=== PATIENT | male | born 1960 | race Caucasian/White ===

== ENCOUNTER 2017-04-07 07:10 | Day surgery (SDC) | payer OTHER ==
[~2017-04-07] VITALS: Ht 177.8 cm; Wt 99.8 kg
[~2017-04-07 07:10] MED LIST: LEVO-T125 MCG PO
--- NOTE | 2017-04-07 08:39 | NUR ---
MET WITH PT'S FAMILY-FELT COMFORTABLE WITH CARE. GAVE DIRECTIONS FOR BLDG. EXPRESSED GRATITUDE. WILL FOLLOW NEEDED
--- NOTE | 2017-04-07 09:11 | NUR ---
04/07/17 0911 Danial Moyer SAT 99, O2 DECREASED TO 1L VIA NC.
--- NOTE | 2017-04-12 01:42 | OR ---
[facility] [address] [place], [place] [address] Signed PREOPERATIVE DIAGNOSIS: Dysphagia with known hiatal hernia and Schatzki's ring and clinical reflux symptoms. POSTOP DIAGNOSIS: Hiatal hernia with minimal Schatzki's ring but ulcerative esophagitis. PROCEDURE: Esophagogastroduodenoscopy with biopsy. SURGEON: Theodora. ANESTHESIA: Intravenous sedation, fentanyl 100 mcg, Versed 5 mg. INDICATION: This 56-year-old, white male, who is the patient of Dr. Vera. He has occasional dysphagia and known reflux symptoms. He does not currently take any anti-reflux medications. He occasionally takes Pepto-Bismol. His dysphagia is significant and an upper GI was performed under the direction of Dr. Vera which showed hiatal hernia and a Schatzki's ring. Consideration has been made for operative management of his problem. He is admitted at this time to undergo upper endoscopy to better characterize his Schatzki's ring and level of esophagitis and hiatal hernia and to assess for other concurrent problems of the gastrointestinal tract of the stomach and duodenum. The risks of bleeding, infection, perforation related upper endoscopy reviewed with him. He understands and wished to proceed. FINDINGS: Significant ulcerative esophagitis was noted. A poor flap valve consists with hiatal hernia was noted as well. The Schatzki ring was identified, but not particularly dense or narrow. Stomach had mild inflammation, but no ulceration. The duodenum appeared normal. CLOTEST was negative. 15 minutes post procedure. There is no clear evidence of Sanchez's epithelium. PROCEDURE: The patient brought to endoscopy suite and given topical Hurricaine spray, and placed in lateral decubitus position. He was given intravenous sedation and nystagmus. A bite block was placed. An Olympus video upper endoscope passed into the hypopharynx. He had a fair amount of secretions which required additional suctioning. The scope was advanced to the esophagus without problem. Esophagus showed impressive chronic and acute ulcerative esophagitis in the distal portion. There was no obvious neoplasm and certainly no clear evidence of Sanchez epithelium. The scope was advanced to the stomach which was insufflated with air. Nuchal fold were normal. The pylorus was normal. Scope was passed through the end of the duodenum. Biopsies of the duodenum undertaken. The scope was withdrawn and biopsies taken of the antrum for both [place] and pathologic testing. Retroflexed view confirmed hiatal hernia, which is moderately large in size. The scope was withdrawn to the distal esophagus and narrow band imaging was used to better characterize the level ulcerative Electronically Signed By: AVERY WATT MD 04/12/17 0142 PATIENT NAME: ROSSY GONZÁLES OPERATIVE REPORT DATE OF : 60 PHYSICIAN: AVERY WATT MD REPORT #: [id number] REPORT IS CONFIDENTIAL AND NOT TO BE RELEASED WITHOUT AUTHORIZATION [facility] [address] [place] [id number] Signed esophagitis. Multiple biopsies were taken from distal esophagus. The Schatzki's ring was identified, an upper GI was identified and biopsied as well, but all the specimens were passed into the same specimen container. Further withdrawal of scope showed the midesophagus to be reasonably normal appearing. Biopsies were taken there as well to assess for eosinophilic esophagitis. Further withdrawal of scope showed no other abnormalities. The vocal cords appeared reasonably normal. Scope was removed and the patient taken to recovery room in good condition. Concluding diagnosis severe ulcerative distal esophagitis and hiatal hernia. PLAN: He needs to start with Prilosec 20 mg p.o. daily at this point. Consideration would be made for operative intervention. Those patients that do well with operation often have done well with PPI medication as well. He has some resistance to this medication but on short-term it will be safe. We will see him back in 2-4 weeks and review his options at that point. MD NAS Awad/Ginal /[id number] Electronically Signed By: AVERY WATT MD 04/12/17 0142 PATIENT NAME: ROSSY GONZÁLES OPERATIVE REPORT DATE OF : 60 PHYSICIAN: AVERY WATT MD REPORT #: [id number] REPORT IS CONFIDENTIAL AND NOT TO BE RELEASED WITHOUT AUTHORIZATION
== END 2017-04-07 09:37 | disposition home or self-care (01) ==
LOC: OPS 07:10 → DS 07:10 → OPS 08:30 → DS 08:30 → OPS 09:37
PROVIDERS: Surgery
PROC: 0DB28ZX Excision of Middle Esophagus, Via Natural or Artificial Opening Endoscopic, Diagnostic (ICD-10-PCS; 2017-04-07)
PROC: 0DB68ZX Excision of Stomach, Via Natural or Artificial Opening Endoscopic, Diagnostic (ICD-10-PCS; 2017-04-07)
PROC: 0DB38ZX Excision of Lower Esophagus, Via Natural or Artificial Opening Endoscopic, Diagnostic (ICD-10-PCS; 2017-04-07)
PROC: 0DB98ZX Excision of Duodenum, Via Natural or Artificial Opening Endoscopic, Diagnostic (ICD-10-PCS; principal; 2017-04-07 08:30)
DX: K20.9 Esophagitis, unspecified (principal); K31.9 Disease of stomach and duodenum, unspecified; K29.80 Duodenitis without bleeding; K44.9 Diaphragmatic hernia without obstruction or gangrene; K22.2 Esophageal obstruction; K22.70 Barrett's esophagus without dysplasia; K21.9 Gastro-esophageal reflux disease without esophagitis; E03.9 Hypothyroidism, unspecified; I10 Essential (primary) hypertension; G47.30 Sleep apnea, unspecified; Z90.89 Acquired absence of other organs; Z98.818 Other dental procedure status
CPT/HCPCS: 99152; 99153; J2250; J3010; J7120

== ENCOUNTER 2017-08-15 11:02 | Inpatient (IN) | payer OTHER ==
[~2017-08-15] VITALS: Ht 177.8 cm; Wt 99.8 kg
--- NOTE | 2017-08-25 15:03 | OR ---
[facility] [address] [place], [place] [address] Signed DATE OF OPERATION: 08/24/2017 SURGEON: Avery Watt MD PREOPERATIVE DIAGNOSIS: Medically refractory, severe gastroesophageal reflux disease including spontaneous regurgitation, nocturnal aspiration, and hiatal hernia. POSTOPERATIVE DIAGNOSIS: Medically refractory, severe gastroesophageal reflux disease including spontaneous regurgitation, nocturnal aspiration, and hiatal hernia. PROCEDURE: 1. Hill repair (reconstruction of the gastroesophageal junction with posterior gastropexy). 2. Intraoperative manometric. 3. Placement of On-Q pain pump catheter. SURGEON: Avery Watt MD ANESTHESIA: General endotracheal (Anika Luna CRNA). INDICATION: This 57-year-old white man is a patient of Dr. Zack Vera and he has had rather significant, progressive, and longstanding reflux disease. He has been taking PPI medication, but he still bothered by his reflux symptoms including an epigastric and substernal burning pain. He has no associated dysphagia. He has nocturnal symptoms including aspiration type symptoms and is able to have spontaneous regurgitation and bending over with full stomach. He desperately wishes a surgical solution to his problem. He understands the various operations, as I have explained to him in attempts at repairing his hiatal hernia and reflux problem including both laparoscopic and open techniques. He knows I favor an open Hill Repair as it is durable, safe, and effective in my hands. He has undergone a video esophagram, which showed normal motility. He understands the risks of bleeding, infection, dysphagia either short or long-term, recurrent reflux, particularly if significant weight gain is incurred, and other unforeseen complications related to operation and wishes to proceed. FINDINGS: The patient is large and had intraabdominal obesity, but not excessively so. The spleen was normal, although it did have some posterior capsular splenic attachments and therefore the typical packing behind the spleen was not undertaken. The GE junction could easily accommodate 3-4 fingers consistent with hiatal hernia. Good mobility of the GE Electronically Signed By: AVERY WATT MD 08/25/17 1503 PATIENT NAME: ROSSY GONZÁLES OPERATIVE REPORT DATE OF : 60 PHYSICIAN: AVERY WATT MD REPORT #: [id number] REPORT IS CONFIDENTIAL AND NOT TO BE RELEASED WITHOUT AUTHORIZATION [facility] [address] [place], [place] [address] Signed junction was accomplished with preservation of the anterior and posterior vagal nerve trunks. Intraoperative manometrics demonstrated peak pullout pressure of 45-50 mmHg over a 3 cm intraabdominal segment. The resultant flap valve was quite good. The liver appeared normal. The left lateral segment was not excessively long. The gallbladder had no palpable stones, but was thickened and had a relatively thick fatty layer over it beneath its peritoneum. The duodenum showed no evidence of ulcer disease or gastric outlet obstruction. At conclusion, the resultant reconstruction was quite optimal, it is believed. An epidural catheter was anticipated and attempted, but given scoliosis and other skeletal deformities, it was not possible and therefore, an On-Q pain pump catheter was placed. DESCRIPTION OF PROCEDURE: The patient was brought to the operating room, given a general endotracheal anesthetic. A Seaman catheter was placed. The abdomen is prepared with chlorhexidine solution and draped sterilely. Preoperative antibiotics were given as well as subcutaneous heparin and sequential compression device stockings were used. The test by the textile knitter pass the manometric tube nasally were unsuccessful despite various attempts and techniques to do so. After sterile draping, an incision was made extending from below the xiphoid to above the umbilicus. The abdominal wall fat was not excessively thick. The abdomen was entered without problem. He had a very thickened and fatty omentum. Intraabdominal inspection was undertaken and palpation revealed no abnormalities initially. An upper hand retractor was placed. The falciform ligament was freed from its diaphragmatic attachments freeing the liver entirely. Palpation behind the spleen showed some splenic adhesions superiorly and therefore a rolled pack was not placed behind the spleen as is usually the case. The left lateral segment was freed from its diaphragmatic attachments with blunt and electrocautery dissection. The lesser sac, although fatty was divided with electrocautery revealing the caudate lobe of the liver and the vena cava and the GE junction. A Bookwalter retractor was attached to the lower aspect of the table and the left lateral segment of the liver and the caudate lobe retracted out of the GE junction area allowing for good exposure of that area. He was rather deep in his body habitus at the GE junction as could have been predicted. Dissection was begun along the right leon freeing the phrenoesophageal ligament from the right leon. Dissection was carried anteriorly with all due care including blunt electrocautery dissection causing no injury to the underlying esophagus. Gastrophrenic Electronically Signed By: AVERY WATT MD 08/25/17 1503 PATIENT NAME: ROSSY GONZÁLES OPERATIVE REPORT DATE OF : 60 PHYSICIAN: AVERY WATT MD REPORT #: [id number] REPORT IS CONFIDENTIAL AND NOT TO BE RELEASED WITHOUT AUTHORIZATION [address] [address] Signed attachments were bluntly and sharply dissected free with considerable amount of posterior attachments of the cardia to the retroperitoneum and the area of the superior pole of the spleen. Short gastric vessels did not need detaching. A hook retractor was used to elevate the GE junction laterally and the left leon was freed from its attachments completely including the phrenoesophageal bundles posteriorly. The preaortic fascia was cleared with both blunt and electrocautery dissection down to the midportion of the pancreas. Both right and left crura were ultimately freed completely. Special dissection was undertaken alongside of the esophagus sparing the anterior and posterior vagal nerve trunks. The GE junction was ultimately freed completely was quite mobile. The left and right crura were reapproximated with interrupted 0 silk sutures with Betadine soaked Misha pledgets. Elevating the preaortic fascia from the underlying aorta would be too cumbersome in his situation given the deep nature of his GE junction, not that basis elevation of the preaortic fascia away from the aorta was undertaken with a silk suture. The plans were made for repair. Clementina clamps were applied to the anterior and posterior phrenoesophageal bundles. Using 0 Ethibond suture with Betadine soaked Misha pledgets, a seromuscular bite of stomach in conjunction with phrenoesophageal bundle anteriorly as well as a similar bite posteriorly taking care to avoid incorporation of vagus nerves was undertaken. This was then pexed to the preaortic fascia elevating it away from the aorta. Four such repair sutures were placed in the classic technique of Rene. The sutures were secured with a surgeons throw imbricating the anterior and posterior phrenoesophageal bundles and pexing them strongly to the posterior elements of the preaortic fascia. Plans were then made for manometrics. The manometric tube had been able to be passed orally and was manipulated into position. Pullout pressures were undertaken showing a peak pressure of approximately 35-45 mmHg over a 3-4 cm intraabdominal segment. Once a durable waveform was noted. The sutures were more fully secured and a final pullout pressure performed. This confirmed a good waveform including durable plateau at approximately 45 mmHg over 3 cm segment. The manometric tube was removed and a nasogastric tube was able to be manipulated through the nostril into the stomach positioning it well for postoperative decompression. The fundus of the stomach was pexed to the diaphragmatic tendon with interrupted 2-0 silk sutures with Misha pledgets, so as to avoid fundic herniation through the hiatus. Palpation of the resultant flap valve found to be quite optimal. The left lateral segment was allowed to return to its natural position. Palpation of the gallbladder showed to be thickened, but without stones. A thick fatty peritoneal covering was noted. There was no Electronically Signed By: AVERY WATT MD 08/25/17 1503 PATIENT NAME: ROSSY GONZÁLES OPERATIVE REPORT DATE OF : 60 PHYSICIAN: AVERY WATT MD REPORT #: [id number] REPORT IS CONFIDENTIAL AND NOT TO BE RELEASED WITHOUT AUTHORIZATION [facility] [address] [place], [place] [address] Signed untoward bleeding. Right and left subcostal On-Q catheters were placed in the sub-peritoneal space bilaterally. Midline fascia was reapproximated with running bidirectional #1 PDS suture. The subcutaneous tissue was irrigated and skin closed with running subcuticular 3-0 Vicryl. Steri-Strips were applied as was a Mepilex silver sponge dressing. OpSite was applied as well including to the area of the On-Q pump. The patient was ultimately extubated and transferred to recovery in good condition having suffered no complication. Sponge, needle, and instrument counts were reported as correct x3. Blood loss is less than 25 mL. Sponge, needle, and instrument counts were reported as correct x3. MD NAS Awad/ISHANL /[id number] cc: Zack Vera DO Electronically Signed By: AVERY WATT MD 08/25/17 1503 PATIENT NAME: ROSSY GONZÁLES OPERATIVE REPORT DATE OF : 60 PHYSICIAN: AVERY WATT MD REPORT #: [id number] REPORT IS CONFIDENTIAL AND NOT TO BE RELEASED WITHOUT AUTHORIZATION
[2017-08-28] MEDS ORDERED: HYDROCODONE-AC473 ML PO (08:54)
--- NOTE | 2017-08-29 11:14 | DS ---
[facility] [address] [place], [place] [address] Signed ADMISSION DATE: 08/24/2017 DISCHARGE DATE: 08/28/2017 REASON FOR ADMISSION: This 57-year-old white man is a patient of Dr. Zack Vera and has had a significant progressive and longstanding reflux disease. He has failed medical management and is here to undergo anti-reflux operation including Hill posterior gastropexy with intraoperative manometrics. PERTINENT PHYSICAL EXAM: GENERAL: Large white man, who looks to be in no acute distress. Trachea midline. CHEST: Clear. HEART: Regular without murmur. ABDOMEN: Somewhat obese, but soft. Easily palpated. There is no ascites. EXTREMITIES: Show no clubbing, cyanosis, or edema. HOSPITAL COURSE: On August 24, 2017, he underwent Hill repair (reconstruction of the gastroesophageal junction with posterior gastropexy). Additionally, he underwent intraoperative manometrics and placement of On-Q pain pump catheter. The operation went very well. Following operation, he was maintained with a decompressive nasogastric tube overnight as well as a Seaman catheter. He was unable to have an epidural catheter due to scoliosis, though attempts were made to place one. He had surprisingly good pain control postoperatively with the On-Q pump as well as MOLECULAR GENETICIST device. He was begun on liquids and the following day, the nasogastric tube and Seaman catheter were removed. He had progressive improvement, though he did have occasional hiccups early on, which ultimately resolved. He felt that he had hallucinations with Dilaudid oral medication on that basis and was switched to Lortab Elixir, which he seemed to tolerate. Additionally, intravenous Toradol was helpful to him. By day of discharge, he is tolerating a full liquid diet without problem, having no reflux symptoms and pain is well-controlled. His incision is healing well. FOLLOWUP PLAN: He is return to see me in September 2017. DISCHARGE MEDICATIONS: Will be Synthroid 125 mcg tablets p.o. daily, also Lortab Elixir 7.5/325, 10-15 mL p.o. q.4 hours p.r.n. pain. Additionally, he is able to take Motrin in the next week or two 600 mg p.o. q.6 hours p.r.n. pain once his swallowing is more secure. Electronically Signed By: AVERY WATT MD 08/29/17 1114 PATIENT NAME: ROSSY GONZÁLES DISCHARGE SUMMARY DATE OF : 60 PHYSICIAN: AVERY WATT MD REPORT #: [id number] REPORT IS CONFIDENTIAL AND NOT TO BE RELEASED WITHOUT AUTHORIZATION [facility] [address] [place], [place] [address] Signed DISCHARGE DIAGNOSES: 1. Medically refractory gastroesophageal reflux disease with hiatal hernia, status post Hill posterior gastropexy with intraoperative manometrics and placement of On-Q pain pump catheter. 2. Hypothyroidism. MD NAS Awad/CARLTON /[id number] cc: Zack Vera DO Electronically Signed By: AVERY WATT MD 08/29/17 1114 PATIENT NAME: ROSSY GONZÁLES DISCHARGE SUMMARY DATE OF : 60 PHYSICIAN: AVERY WATT MD REPORT #: [id number] REPORT IS CONFIDENTIAL AND NOT TO BE RELEASED WITHOUT AUTHORIZATION
== END 2017-08-28 11:35 | disposition home or self-care (01) | DRG 328 ==
LOC: MS 08-24 05:45 → DSVR 08-24 05:45 → MS 08-24 06:45
PROVIDERS: ADMIT Surgery
PROC: 0DR Gastrointestinal System, Replacement (ICD-10-PCS; 2017-08-24)
PROC: 0BQT0ZZ Repair Diaphragm, Open Approach (ICD-10-PCS; principal; 2017-08-24 06:45)
DX: K21.0 Gastro-esophageal reflux disease with esophagitis (principal); K44.9 Diaphragmatic hernia without obstruction or gangrene; E66.9 Obesity, unspecified
CPT/HCPCS: 00790; 94640; 94762; J0330; J0360; J0690; J1100; J1170; J1644; J1885; J2250; J2405; J2704; J3010; J7040; J7120